=== PATIENT | male | born 1945 | race Two or more races ===

== ENCOUNTER 2018-11-22 07:58 | Day surgery (SDC) | payer OTHER | END 2018-11-22 14:02 | disposition home or self-care (01) | LOC: AMB-ENDOS 07:58 | DX: K57.30 Diverticulosis of large intestine without perforation or abscess without bleeding (principal) ==

== ENCOUNTER 2022-12-12 06:15 | Day surgery (SDC) | payer OTHER | END 2022-12-12 13:00 | disposition home or self-care (01) | LOC: AMB-ENDOS 06:15 | PROVIDERS: ATTEND Surgery | DX: D12.5 Benign neoplasm of sigmoid colon (principal); K57.30 Diverticulosis of large intestine without perforation or abscess without bleeding; Z20.822 Contact with and (suspected) exposure to COVID-19 ==

== ENCOUNTER 2023-01-25 10:45 | Inpatient (IN) | payer OTHER ==
[~2023-01-25] VITALS: Ht 160 cm; Wt 56.2 kg
[2023-01-25] MEDS ORDERED: CHILDREN'S ASPI81 MG PO (13:00)
[2023-01-25] MEDS ORDERED: SIMVASTATIN10 MG PO (13:01)
[2023-01-31] MEDS ORDERED: PROLIA60 MG/1 ML (08:32)
[2023-02-02] MEDS ORDERED: TAMS0.4C PO (07:56)
[2023-02-02] MEDS ORDERED: GABAPENTIN300 MG PO (07:56)
[2023-02-02] MEDS ORDERED: HYOSCYAMINE0.125 M1 SL (07:56)
== END 2023-02-02 15:00 | disposition home or self-care (01) | DRG 331 ==
LOC: O/R 01-30 06:34 → SURG 01-30 07:00 → SURH 01-30 14:47
PROVIDERS: ADMIT Surgery; ATTEND Surgery
PROC: 0DBP4ZZ Excision of Rectum, Percutaneous Endoscopic Approach (ICD-10-PCS; 2023-01-30)
PROC: 0DJD8ZZ Inspection of Lower Intestinal Tract, Via Natural or Artificial Opening Endoscopic (ICD-10-PCS; 2023-01-30)
PROC: 0DTN4ZZ Resection of Sigmoid Colon, Percutaneous Endoscopic Approach (ICD-10-PCS; principal; 2023-01-30 07:00)
DX: K57.20 Diverticulitis of large intestine with perforation and abscess without bleeding (principal); Z20.822 Contact with and (suspected) exposure to COVID-19